=== PATIENT | male | born 1960 | race African-American/Black ===

== ENCOUNTER 2019-01-05 14:11 | Outpatient (CLI) | payer OTHER ==
--- NOTE | 2019-01-05 14:38 | RAD ---
LUMBAR SPINE: Three views. 01/05/19 HISTORY: Back pain. Disability evaluation. Lumbar vertebrae maintain normal height and alignment. Disc spaces are maintained. Mild degenerative osteophytes are seen from the lumbar vertebrae. No evidence of spondylolisthesis or spondylolysis. IMPRESSION: Mild degenerative changes of the lumbar spine. POS: [facility]
== END 2019-01-05 14:12 | disposition home or self-care (01) ==
LOC: NAV RAD 14:11
PROVIDERS: ATTEND Family Medicine
DX: Z02.71 Encounter for disability determination (principal); M54.5 Low back pain; M47.816 Spondylosis without myelopathy or radiculopathy, lumbar region
CPT/HCPCS: 72100